=== PATIENT | female | born 1950 | race Caucasian/White ===

== ENCOUNTER 2017-01-09 19:00 | Emergency (ER) | payer MEDICARE ==
[~2017-01-09 19:00] MED LIST: AMITRIPTYLINE H10 MG PO; AMITRIPTYLINE H25 MG PO; GABAPENTIN300 MG PO; OXYCODONE HCL15 MG PO; PRILOSEC20 MG PO; SULFAMYLON SOL250 M1 EXT; TRAMADOL HCL50 MG PO
[2017-01-09] MEDS ORDERED: BACTRIM DS TAB1 EAC2 PO (19:18)
== END 2017-01-09 20:28 ==
LOC: EDMED 19:00
PROC: 0H98XZZ Drainage of Buttock Skin, External Approach (ICD-10-PCS; principal; 2017-01-09)
DX: L89.319 Pressure ulcer of right buttock, unspecified stage (principal)